=== PATIENT | male | born 1960 | race Caucasian/White ===

== ENCOUNTER 2016-12-19 19:53 | Emergency (ER) | payer BC, OTHER ==
[~2016-12-19] VITALS: Ht 167.6 cm; Wt 90.7 kg
[2016-12-19] MEDS ORDERED: PRIL20CA9 PO (20:11)
[2016-12-19] MEDS ORDERED: CELE50CA PO (20:11)
[2016-12-19] MEDS ORDERED: TETRACAINE 0.5% OPHTH SOLN 4ML OU ONE (20:45)
[2016-12-19] MEDS ORDERED: FLUORESCEIN OPHTH 1 MG STRIP OU ONE (20:45)
[2016-12-19] MEDS ORDERED: POLYVINYL ALCOHOL OPHTH SOLN 15 ML(LIQUITEARS) OU ONE (21:15)
[2016-12-19 21:31] VITALS: BP 127/94
== END 2016-12-19 21:41 | disposition home or self-care (01) ==
LOC: M ED 21:28
DX: S05.02XA Injury of conjunctiva and corneal abrasion without foreign body, left eye, initial encounter (principal); V49.3XXA Car occupant (driver) (passenger) injured in unspecified nontraffic accident, initial encounter; Y92.410 Unspecified street and highway as the place of occurrence of the external cause; K21.9 Gastro-esophageal reflux disease without esophagitis; M19.90 Unspecified osteoarthritis, unspecified site; Z79.899 Other long term (current) drug therapy; Z88.1 Allergy status to other antibiotic agents

== ENCOUNTER 2017-07-15 22:40 | Emergency (ER) | payer BC, OTHER, SELFPAY ==
[2017-07-15] MEDS: ONDANSETRON 4MG/2ML VIAL (J2405) IV (23:00)
[2017-07-15] MEDS: KETOROLAC 30 MG/ML VIAL (J1885) IV (23:00)
[2017-07-15] MEDS: NS 1,000 ML IV (23:00)
[2017-07-15 23:45] LABS: BASO % 0.3 % (0.0-1.0); EOS % 0.6 % (0.0-3.0); IMMATURE GRANULOCYTE % 0.2 % (0-0); LYMPH # 1.6 10^3/uL (1.5-4.5); LYMPH % 24.9 % (24.0-44.0); MEAN CORPUSCULAR HEMOGLOBIN 29.5 pg (27.0-33.0); MEAN CORPUSCULAR HGB CONC 34.5 g/dl (32.0-36.5); MEAN CORPUSCULAR VOLUME 85.4 fl (80.0-96.0); MONO # 0.3 10^3/uL (0.0-0.8); MONO % 4.9 % (0.0-5.0); NEUTROPHILS # 4.6 10^3/uL (1.8-7.7); NEUTROPHILS % 69.1 % (36.0-66.0); PLATELET COUNT, AUTOMATED 263 10^3/uL (150-450); RED CELL DISTRIBUTION WIDTH 12.7 % (11.5-14.5); WHITE BLOOD COUNT 6.6 10^3/uL (4.0-10.0)
[2017-07-16 00:09] LABS: ANION GAP 6 MEQ/L (8-16); BLOOD UREA NITROGEN 29 MG/DL (7-18); CALCIUM LEVEL 9.1 MG/DL (8.5-10.1); CARBON DIOXIDE LEVEL 28 MEQ/L (21-32); CHLORIDE LEVEL 107 MEQ/L (98-107); CREATININE FOR GFR 1.48 MG/DL (0.70-1.30); GLOMERULAR FILTRATION RATE 52.2 (>56); GLUCOSE, FASTING 100 MG/DL (70-105); POTASSIUM SERUM 3.9 MEQ/L (3.5-5.1); SODIUM LEVEL 141 MEQ/L (136-145)
[2017-07-16 00:11] LABS: KETONE, URINE AUTO RFX NEGATIVE (NEGATIVE); LEUKOCYTE ESTERASE UR AUTO RFX NEGATIVE (NEGATIVE); MUCUS, URINE RFX SMALL (NEGATIVE); NITRITE, URINE AUTO RFX NEGATIVE (NEGATIVE); RBC, URINE AUTO RFX 41 /HPF (0-3); SPECIFIC GRAVITY UR AUTO RFX 1.021 (1.002-1.035); SQUAM EPITHELIAL CELL UR AURFX 0 /HPF (0-6); URIC ACID CRYSTALS RFX SMALL; WBC, URINE AUTO RFX 2 /HPF (0-3)
[2017-07-16] MEDS: TAMSULOSIN 0.4 MG CAP PO (00:44)
[2017-07-16] MEDS: OXYCODONE/APAP 5MG/325MG(BULK FOR ED) 1 TABLET PO (00:45)
[2017-07-16] MEDS: ONDANSETRON 4 MG ORAL DISINTEGRATING TAB (S0181) PO (00:45)
== END 2017-07-16 01:25 | disposition home or self-care (01) ==
LOC: M ED 07-16 01:25
DX: N20.1 Calculus of ureter (principal); N13.30 Unspecified hydronephrosis; M19.90 Unspecified osteoarthritis, unspecified site; Z79.899 Other long term (current) drug therapy; Z88.1 Allergy status to other antibiotic agents
CPT/HCPCS: J2405

== ENCOUNTER 2018-09-26 07:35 | Day surgery (SDC) | payer BC, OTHER ==
[~2018-09-26] VITALS: Ht 167.6 cm; Wt 88.0 kg
[~2018-09-26 07:35] MED LIST: CELE50CA PO; FLOM0.4C39 PO; NS 1,000 ML IV ONE; PANT40TA3 PO; PERC5TAB12 PO; PRIL20CA9 PO; ZOFR4TAB14 PO
[2018-09-26] MEDS ORDERED: LIDOCAINE 2% INJ 100 MG/5 ML SDV (FOR ANES.) As Ordered ONE (08:06)
[2018-09-26] MEDS ORDERED: fentaNYL 100 MCG/2 ML INJECTION (J3010) As Ordered ONE (08:06)
[2018-09-26] MEDS ORDERED: PROPOFOL 500 MG/50 ML VIAL As Ordered ONE (08:06)
--- NOTE | 2018-09-26 08:16 | ROOR ---
Patient Name: Babar Chapa Procedure Date: 09/26/2018 8:02 AM Date of : 1960 Age: 58 Room: [facility] Gender: Male Note Status: Finalized Procedure: Upper Endoscopy + Biopsies Indications: Heartburn, Exclusion of Rdz's esophagus Providers: Parker Alfred MD Referring MD: JOSÉ MIGUEL FULLER MD Requesting Provider: Medicines: Monitored Anesthesia Care Complications: No immediate complications. Procedure: Pre-Anesthesia Assessment: - The heart rate, respiratory rate, oxygen saturations, blood pressure, adequacy of pulmonary ventilation, and response to care were monitored throughout the procedure. The Endoscope was introduced through the mouth, and advanced to the second part of duodenum. The upper GI endoscopy was accomplished without difficulty. The patient tolerated the procedure well. Findings: The Z-line was regular and was found 35 cm from the incisors. Multiple biopsies were obtained with cold forceps for evaluation to rule out Rdz's Esophagus randomly at the gastroesophageal junction. A small hiatal hernia was present. No other significant abnormalities were identified in a careful examination of the stomach. The exam of the duodenum was otherwise normal. Impression: - Z-line regular, 35 cm from the incisors. - Small hiatal hernia. - Multiple biopsies were obtained at the gastroesophageal junction. - The examination was otherwise normal. Recommendation: - Patient has a contact number available for emergencies. The signs and symptoms of potential delayed complications were discussed with the patient. Return to normal activities tomorrow. Written discharge instructions were provided to the patient. - High fiber diet. - Discharge patient to home. - Follow an antireflux regimen. - Continue present medications. - Await pathology results. - Telephone GI clinic for pathology results in 1 week. - Return to referring physician. - The findings and recommendations were discussed with the patient's family. Parker Alfred MD Parker Alfred MD 09/26/2018 8:15:57 AM This report has been signed electronically. Number of Addenda: 0 Note Initiated On: 09/26/2018 8:02 AM Estimated Blood Loss: Estimated blood loss: none.
--- NOTE | 2018-09-26 08:42 | ROOR ---
Patient Name: Babar Chapa Procedure Date: 09/26/2018 8:02 AM Date of : 1960 Age: 58 Room: [facility] [place] Gender: Male Note Status: Finalized Procedure: Total Colonoscopy to Cecum + Cold Snare Polypectomy + Hemoclips Indications: High risk colon cancer surveillance: Personal history of colonic polyps, Last colonoscopy: 2014 Providers: Parker Alfred MD Referring MD: JOSÉ MIGUEL FULLER MD Requesting Provider: Medicines: Monitored Anesthesia Care Complications: No immediate complications. Procedure: Pre-Anesthesia Assessment: - The heart rate, respiratory rate, oxygen saturations, blood pressure, adequacy of pulmonary ventilation, and response to care were monitored throughout the procedure. The Colonoscope was introduced through the anus and advanced to the cecum, identified by appendiceal orifice and ileocecal valve. The colonoscopy was performed without difficulty. The patient tolerated the procedure well. The quality of the bowel preparation was excellent. Findings: The perianal and digital rectal examinations were normal. A medium polyp was found in the rectum. The polyp was carpet-like. The polyp was removed with a cold snare. Resection and retrieval were complete. To prevent bleeding after the polypectomy, two hemostatic clips were successfully placed (MR conditional). There was no bleeding at the end of the procedure. A medium polyp was found in the ascending colon. The polyp was sessile. The polyp was removed with a cold snare. Resection and retrieval were complete. Scattered small-mouthed diverticula were found in the recto-sigmoid colon, sigmoid colon and descending colon. The exam was otherwise without abnormality on direct and retroflexion views. Impression: - One medium polyp in the rectum, removed with a cold snare. Resected and retrieved. Clips (MR conditional) were placed. - One medium polyp in the ascending colon, removed with a cold snare. Resected and retrieved. - Diverticulosis in the recto-sigmoid colon, in the sigmoid colon and in the descending colon. - The examination was otherwise normal on direct and retroflexion views. - The exam was otherwise normal to the cecum. Recommendation: - Patient has a contact number available for emergencies. The signs and symptoms of potential delayed complications were discussed with the patient. Return to normal activities tomorrow. Written discharge instructions were provided to the patient. - High fiber diet. - Discharge patient to home. - Continue present medications. - Await pathology results. - Telephone GI clinic for pathology results in 1 week. - Repeat colonoscopy for surveillance based on pathology results. - Return to referring physician. - The findings and recommendations were discussed with the patient's family. Parker Alfred MD Parker Alfred MD 09/26/2018 8:41:32 AM This report has been signed electronically. Number of Addenda: 0 Note Initiated On: 09/26/2018 8:02 AM Estimated Blood Loss: Estimated blood loss: none.
[2018-09-26 09:05] VITALS: BP 122/83
== END 2018-09-26 09:14 | disposition home or self-care (01) ==
LOC: M OPP 07:35
PROVIDERS: ATTEND Internal Medicine Gastroenterology
DX: Z86.010 Personal history of colon polyps (principal); R12 Heartburn; K62.1 Rectal polyp; D12.2 Benign neoplasm of ascending colon; K57.30 Diverticulosis of large intestine without perforation or abscess without bleeding; K44.9 Diaphragmatic hernia without obstruction or gangrene; Z88.1 Allergy status to other antibiotic agents; Z79.899 Other long term (current) drug therapy
CPT/HCPCS: 43239; 45385; 88305; J3010

== ENCOUNTER → 2020-04-19 | Outpatient (CLI) | payer BC, OTHER ==
[~2020-04-19] MED LIST changes: -NS 1,000 ML IV ONE; +PANT40TA29 PO; -PANT40TA3 PO
[2020-04-19 17:15] LABS: BASO % 0.6 % (0.0-1.0); EOS # 0.1 10^3/uL (0.0-0.5); EOS % 2.6 % (0.0-3.0); HEMATOCRIT 45.2 % (42.0-52.0); HEMOGLOBIN 15.3 g/dl (13.5-17.5); LYMPH # 1.6 10^3/uL (1.5-5.0); LYMPH % 32.4 % (24.0-44.0); MEAN CORPUSCULAR HEMOGLOBIN 29.5 pg (27.0-33.0); MEAN CORPUSCULAR HGB CONC 33.8 g/dl (32.0-36.5); MEAN CORPUSCULAR VOLUME 87.3 fl (80.0-96.0); MONO # 0.3 10^3/uL (0.0-0.8); MONO % 6.5 % (0.0-5.0); NEUTROPHILS # 2.9 10^3/uL (1.5-8.5); NEUTROPHILS % 57.7 % (36.0-66.0); PLATELET COUNT, AUTOMATED 221 10^3/uL (150-450); RED BLOOD COUNT 5.18 10^6/uL (4.30-6.10); WHITE BLOOD COUNT 5.1 10^3/uL (4.0-10.0)
[2020-04-19 18:09] LABS: ERYTHROCYTE SEDIMENTATION RATE 9 mm/hr (0-20)
[2020-04-19 19:08] LABS: C REACTIVE PROTEIN QUANTITATIV < 0.30 MG/DL (0.00-0.30); RHEUMATOID FACTOR QUANT < 10.0 IU/ML (<15.0)
[2020-04-26 21:06] LABS: ANTINUCLEAR ANTIBODIES DIRECT Negative (Negative); HLA-B27 Negative (.)
== END ==
LOC: M LAB 15:59
PROVIDERS: ATTEND Physician Assistant
DX: M50.30 Other cervical disc degeneration, unspecified cervical region (principal)

== ENCOUNTER → 2020-06-22 | Outpatient (CLI) | payer BC, OTHER ==
[2020-06-22 16:52] LABS: BLOOD UREA NITROGEN 17 MG/DL (7-18); CREATININE FOR GFR 1.28 MG/DL (0.70-1.30); GLOMERULAR FILTRATION RATE > 60.0 (>49)
== END ==
LOC: M LAB 16:04
PROVIDERS: ATTEND Physician Assistant
DX: M50.30 Other cervical disc degeneration, unspecified cervical region (principal)

== ENCOUNTER → 2022-03-29 | Outpatient (CLI) | payer BC, OTHER | LOC: M RAD 16:23 | PROVIDERS: ATTEND Family Medicine | DX: R31.21 Asymptomatic microscopic hematuria (principal) ==

== ENCOUNTER 2023-10-23 11:05 | Day surgery (SDC) | payer BC ==
[~2023-10-23] VITALS: Ht 167.6 cm; Wt 91.5 kg
[2023-10-23] MEDS: NS 1,000 ML IV ONE (06:00)
[~2023-10-23 11:05] MED LIST changes: +ATOR1TAB19 PO; +CELE0.09 PO; +ERGO500029 PO
[2023-10-23] MEDS ORDERED: propofoL 200 MG/20 ML VIAL As Ordered ONE (12:25)
[2023-10-23 12:34] VITALS: TEMP 97.6
[2023-10-23 12:50] VITALS: BP 111/77; O2SAT 97
== END 2023-10-23 12:55 | disposition home or self-care (01) ==
LOC: M OPP 11:05
PROVIDERS: ATTEND Internal Medicine Gastroenterology
DX: Z12.11 Encounter for screening for malignant neoplasm of colon (principal); Z86.010 Personal history of colon polyps; K62.89 Other specified diseases of anus and rectum; K57.30 Diverticulosis of large intestine without perforation or abscess without bleeding; Z79.02 Long term (current) use of antithrombotics/antiplatelets; Z79.1 Long term (current) use of non-steroidal anti-inflammatories (NSAID); Z79.899 Other long term (current) drug therapy; Z88.1 Allergy status to other antibiotic agents

== ENCOUNTER → 2024-04-02 | Outpatient (CLI) | payer BC | LOC: M PLAIMG 14:40 | PROVIDERS: ATTEND Orthopaedic Surgery | DX: M54.50 Low back pain, unspecified (principal); M48.061 Spinal stenosis, lumbar region without neurogenic claudication; M47.817 Spondylosis without myelopathy or radiculopathy, lumbosacral region ==